=== PATIENT | male | born 1975 | race Caucasian/White ===

== ENCOUNTER → 2018-02-17 | Emergency (ER) | payer BC ==
[~2018-02-17] VITALS: Ht 180.3 cm; Wt 90.7 kg
[~2018-02-17] MED LIST: METFORMIN HCL500 MG
== END | disposition home or self-care (01) ==
LOC: ER 21:17
DX: K80.20 Calculus of gallbladder without cholecystitis without obstruction (principal); R10.11 Right upper quadrant pain